=== PATIENT | male | born 1970 | race Caucasian/White ===

== ENCOUNTER 2019-09-20 19:07 | Emergency (ER) | payer SELFPAY ==
[~2019-09-20] VITALS: Ht 193 cm; Wt 145.1 kg
[2019-09-20 19:55] LABS: Basophils # (auto) 0.1 10 ^3/uL (0-0.2); Basophils % (auto) 0.8 % (0.0-2.0); Eosinophils # (auto) 0.6 10 ^3/uL (0-0.8); Eosinophils % (auto) 7.7 % (0.0-7.0); Hematocrit 50.7 % (41.0-53.0); Lymphocytes # (auto) 1.6 10 ^3/uL (0.4-5.4); Lymphocytes % (auto) 18.7 % (10.0-50.0); Mean Corpuscular Hemoglobin 30.2 pg (28.0-32.0); Mean Corpuscular Hgb Conc. 33.6 g/dL (32.0-36.0); Mean Corpuscular Volume 89.8 fL (80.0-100.0); Monocytes # (auto) 0.5 10 ^3/uL (0-1.3); Monocytes % (auto) 6.1 % (0.0-12.0); Neutrophils # (auto) 5.5 10 ^3/uL (1.6-8.6); Neutrophils % (auto) 66.7 % (37.0-80.0); Nucleated Red Blood Cells % 0.2 %; Platelet Count (auto) 258 10^3/uL (140-450); Red Blood Cells 5.64 10^6/uL (4.5-5.90); Red Cell Distribution Width 13.6 % (11.8-14.3); White Blood Cell 8.3 10^3/uL (4.4-10.8)
[2019-09-20] MEDS ORDERED: ASPirin 81 mg TAB PO ONE (20:00)
[2019-09-20] MEDS ORDERED: LORazepam 0.5 MG TAB PO ONE (20:00)
[2019-09-20 20:14] LABS: Albumin 3.7 g/dL (3.4-5.0); Anion Gap 5 (5-15); Blood Urea Nitrogen 18 mg/dL (7-18); Calcium 9.2 mg/dL (8.5-10.1); Carbon Dioxide 33 mmol/L (21-32); Chloride 98 mmol/L (98-107); Glucose 148 mg/dL (74-106); Potassium 3.4 mmol/L (3.5-5.1); Sodium 136 mmol/L (136-145)
[2019-09-20 20:17] LABS: Alanine Aminotransferase 30 U/L (16-61); Aspartate Aminotransferase 17 U/L (15-37); BUN/Creatinine Ratio 12.9; GFR African American 70 mL/min; GFR Non-African American 57 mL/min
[2019-09-20 20:18] LABS: Bilirubin, Total 0.9 mg/dL (0.2-1.0); Total Protein 8.1 g/dL (6.4-8.2)
[2019-09-20 20:21] LABS: Alkaline Phosphatase 129 U/L (45-117)
[2019-09-20 20:29] LABS: INR 1.06 (0.9-1.15); Partial Thromboplastin Time 30.8 sec (23.64-32.05)
[2019-09-20 21:58] LABS: Alcohol, Urine < 3.0 mg/dL (0-5); Amphetamine Screen, Urine POSITIVE (NEGATIVE); Barbiturate Scree,Urine NEGATIVE (NEGATIVE); Benzodiazephine Screen, Urine NEGATIVE (NEGATIVE); Cannabinoid Screen, Urine NEGATIVE (NEGATIVE); Cocaine Screen, Urine NEGATIVE (NEGATIVE); Opiate Scree,Urine POSITIVE (NEGATIVE); Phencyclidine Screen, Urine NEGATIVE (NEGATIVE)
[2019-09-20] MEDS ORDERED: ALBUTEROL SULF HFA 90MCG INH 200DOSE IN SCH (22:00)
[2019-09-20 22:02] VITALS: BP 105/71
== END 2019-09-20 22:19 | disposition home or self-care (01) ==
LOC: ER 19:07
DX: T43.625A Adverse effect of amphetamines, initial encounter (principal); I10 Essential (primary) hypertension; E78.5 Hyperlipidemia, unspecified
CPT/HCPCS: 36415; 71045; 80053; 80307; 83735; 83880; 84484; 85025; 85610; 85730; 93005

== ENCOUNTER 2022-02-20 15:53 | Emergency (ER) | payer MEDICAID, OTHER ==
[~2022-02-20] VITALS: Ht 193 cm; Wt 127.0 kg
[2022-02-20 17:45] VITALS: BP 129/75
== END 2022-02-20 17:48 | disposition home or self-care (01) ==
LOC: ER 15:53 → EDBD 15:53 → ER 17:48
DX: T40.601A Poisoning by unspecified narcotics, accidental (unintentional), initial encounter (principal); I10 Essential (primary) hypertension; E78.5 Hyperlipidemia, unspecified; F15.10 Other stimulant abuse, uncomplicated; Y92.89 Other specified places as the place of occurrence of the external cause

== ENCOUNTER 2022-04-02 19:27 | Emergency (ER) | payer MEDICAID | END 2022-04-02 20:18 | disposition left against medical advice (07) | LOC: ER 19:29 | DX: R31.9 Hematuria, unspecified (principal); Z53.21 Procedure and treatment not carried out due to patient leaving prior to being seen by health care provider ==